=== PATIENT | male | born 2000 | race Caucasian/White ===

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

== ENCOUNTER 2021-11-23 22:36 | Emergency (ER) | payer OTHER, SELFPAY ==
[2021-11-23 22:37] VITALS: BP 133/74; PULSE 90; RESP 16; TEMP 37.2; O2SAT 97; BMI 26.6
--- NOTE | 2021-11-24 00:23 | EX.ED.UPPERE ---
HPI History of Present Illness Chief Complaint: Upper Extremity Injury Detail of Chief Complaint: Swelling right hand after hymenoptera envenomation Informant: patient Onset/Context/Timing Onset: Days (Stung 2 days ago) Context: Sudden Onset Timing: Continuous Location: Swelling, feeling full Current Severity: No complaints other than swelling Maximum Severity: Increased swelling since he went to work today Worsened by: Use of right upper extremity Relieved by: Nothing Associated Symptoms Associated Symptoms: Negative for Parasthesia, Weakness or Loss of Funtion Narrative Narrative: Patient was stung by a wasp 2 days ago. He was stung on the dorsal surface of his right hand. He is right-hand dominant. He denies paresthesia, anesthesia or motor weakness. He denies loss of function. He has no other complaints. Tetanus Immunization: 5-10 years Prior similar symptoms: No Recent Illness/Hospitalization: No PFSH PFSH Medical History no medical history no medical history Home Medications NK 11/24/21 [History Last Taken Unknown] Allergy/AdvReac Type Severity Reaction Status Date / Time No Known Allergies Allergy Verified 11/23/21 22:42 Surgical History no surgical history no surgical history Social History (Updated 11/24/21 @ 00:[address] Alli Kay MD) household members: family Smoking Status: Never smoker substance use type: does not use ROS ROS ED Constitutional Constitutional ED: Denies chills, fever(s), subjective, sweats or weight loss Cardiovascular Cardiovascular: Denies chest pain, palpitations or racing heartbeat Respiratory/Chest Respiratory/Chest: Denies dyspnea or dyspnea on exertion Gastrointestinal Gastrointestinal: Denies abdominal pain, diarrhea, nausea or vomiting Integumentary Reports rash; Denies abscess Neurologic Neurologic: Denies headache(s), paresthesias or weakness Hematologic/Lymphatic Hematologic/Lymphatic: Denies easy bleeding or easy bruising Allergic/Immunologic Allergic/Immunologic ED: Denies mouth swelling, tongue swelling or urticaria EXAM Physical Exam Const Vital Signs: 11/23/21 22:37 Temperature 98.9 F Temperature Source Temporal Pulse Rate 90 Respiratory Rate 16 Blood Pressure 133/74 H Blood Pressure Mean 93 Pulse Ox 97 Oxygen Delivery Method Room Air Positive well nourished and well developed General Appearance ED: well developed and NAD HEENT Reports moist mucous membranes HEENT Narrative: Head atraumatic normocephalic. Ears normal. Nares patent. Mucosa moist. Eyes PERRL and EOMs intact bilaterally Eyes Narrative: Conjunctive are normal. No scleral icterus. Neck full ROM and supple Neck Narrative: Trachea is midline. There is no dysphonia. There is no stridor. Resp normal respiratory effort Cardio regular rate and regular rhythm Extremity Extremity Narrative: Patient has swelling edema of the hand. The hand is not taut. There is no pallor, paralysis or paresthesia. Cap refill is normal. Neuro oriented x3, CN's II-XII intact bilaterally and moves all extremities Neuro Narrative: Median, radial and ulnar function intact. Sensorium / Orientation: alert Psych mental status grossly normal Skin General Skin Exam: Negative for petechiae Lesions: no lesions Rashes: rashes noted Trauma: no lacerations or abrasions MDM MDM MDM Narrative Medical decision making narrative: Patient with local allergic reaction to hymenoptera envenomation. Patient was informed treatment is elevate, ice and Benadryl Discharge Plan Triage Chief Complaint: Upper Extremity Injury ED Provider: Alli Kay Dx/Rx/DC Orders Clinical Impression: Accidental wasp sting Instructions: ED Insect Sting, Local Reaction Prescriptions: No Action acetaminophen 500 MG tablet 500 mg PO Q6H PRN PRN (Reason: Pain) Primary Care Provider: Martir Parker Referrals: Martir Parker DO [Primary Care Provider] - As Needed Activity Restrictions/Additional Instructions: 1. Elevate your hand is much as possible. 2. Apply ice 6-8 times a day 3. You may take Benadryl as needed. Disposition Disposition: Home, Self Care
== END 2021-11-24 00:42 | disposition home or self-care (01) ==
LOC: ED 11-24 00:39
PROVIDERS: Emergency Provider Emergency Medicine; PCP Family Medicine; Visit Provider Emergency Medicine
DX: M79.89 Other specified soft tissue disorders (principal); T63.461A Toxic effect of venom of wasps, accidental (unintentional), initial encounter
CPT/HCPCS: 99282